=== PATIENT | male | born 1980 | race Two or more races ===

== ENCOUNTER 2020-08-02 09:52 | Outpatient (CLI) | payer OTHER | END 2020-08-02 23:59 | disposition home or self-care (01) | LOC: LAB 09:52 | PROVIDERS: ATTEND Specialist | DX: Z01.812 Encounter for preprocedural laboratory examination (principal); Z20.828 Contact with and (suspected) exposure to other viral communicable diseases | CPT/HCPCS: 87426; C9803 ×2; U0003 ==

== ENCOUNTER 2020-09-29 14:19 | Outpatient (CLI) | payer OTHER | END 2020-09-29 23:59 | disposition home or self-care (01) | LOC: LAB 14:19 | PROVIDERS: ATTEND Specialist | DX: Z01.812 Encounter for preprocedural laboratory examination (principal); Z20.828 Contact with and (suspected) exposure to other viral communicable diseases | CPT/HCPCS: 87426; C9803; U0003 ==

== ENCOUNTER 2020-10-04 05:39 | Day surgery (SDC) | payer OTHER ==
[2020-10-04] MEDS ORDERED: CEFAZOLIN 1 GM ONE (07:02)
[2020-10-04] MEDS ORDERED: BUPIVACAINE 0.5 % PF 150 MG/30 ML VIAL ONE (07:02)
[2020-10-04] MEDS ORDERED: ANESTHESIA TRAY IN PYXIS 1 EA TRAY MC ONE (07:02)
[2020-10-04] MEDS ORDERED: METHYLENE BLUE 10 ML VIAL ONE (07:02)
[2020-10-04] MEDS ORDERED: LIDOCAINE 1%-EPI 1:100,000 20 ML VIAL ONE (07:03)
[2020-10-04] MEDS ORDERED: HEMOSTATIC MATRIX 8 ML 1 EACH PAD MC ONE (07:04)
[2020-10-04] MEDS ORDERED: IOHEXOL 240MG/ML 0 ML IV ONE (07:05)
[2020-10-04] MEDS ORDERED: methylPREDNISolone ACETATE 80 MG/ML VIAL ONE ×2 (07:06→08:56)
[2020-10-04] MEDS ORDERED: MIDAZOLAM HCL 2 MG/2ML VIAL ONE (07:18)
[2020-10-04] MEDS ORDERED: FENTANYL PF 250MCG/5ML AMPUL ONE (07:19)
[2020-10-04] MEDS ORDERED: HYDROMORPHONE INJ 2 MG/ML DISP.SYRIN ONE (07:19)
[2020-10-04] MEDS ORDERED: DEXAMETHASONE SOD PHOSPHATE 10 MG/ML VIAL ONE (07:20)
[2020-10-04] MEDS ORDERED: HYDROMORPHONE 1 MG/1 ML DISP.SYRIN ONE (10:42)
== END 2020-10-04 11:35 | disposition home or self-care (01) ==
LOC: DS 05:39
PROVIDERS: ATTEND Specialist
DX: M51.17 Intervertebral disc disorders with radiculopathy, lumbosacral region (principal); K21.9 Gastro-esophageal reflux disease without esophagitis
CPT/HCPCS: 36415; 63030; 72020; 86850; A6209; A6402; J0690 ×2; J1040 ×2; J1100; J1170 ×2; J2250; J2704; J2765; J3010; J3490 ×3; Q9968; Q9966

== ENCOUNTER 2020-10-27 12:50 | Inpatient (IN) | payer OTHER ==
[~2020-10-27] VITALS: Ht 165.1 cm; Wt 70.3 kg
[2020-10-27] MEDS ORDERED: ONDANSETRON HCL/PF 4 MG/2 ML VIAL IVP ONE (13:00)
[2020-10-27] MEDS ORDERED: IV NS 0.9% 1,000 ML BAG IV ONE ×2 (13:00→14:30)
--- NOTE | 2020-10-27 13:00 | NUR ---
BIB SELF C/O DIZZINESS, LIGHTHEADED. LEAKING FLUID FRM SURGERY SITE PT HAD LAMINOTOMY 10/04/21. VS CHECKED. HOOKED ON MONITOR. IV ACCESS STARTED. BLOOD DRAW DONE. SEEN BY
[2020-10-27] MEDS ORDERED: ONDANSETRON HCL/PF 4 MG/2 ML VIAL ONE ×2 (13:11→21:14)
[2020-10-27 13:23] LABS: BASOPHILS % (AUTO) 0.2 % (0.0-2.0); EOSINOPHILS % (AUTO) 0.6 % (0.0-6.0); HEMATOCRIT 44 % (39-51); HEMOGLOBIN 14.6 g/dL (13.5-17.5); LYMPHOCYTES # (AUTO) 1.3 /CMM (0.8-4.8); MEAN CORPUSCULAR HGB CONC 34 g/dl (31.0-36.0); MEAN CORPUSCULAR VOLUME 92 fL (80-96); MONOCYTES # (AUTO) 0.6 /CMM (0.1-1.30); MONOCYTES % (AUTO) 4.4 % (2.0-12.0); NEUTROPHILS # (AUTO) 10.6 /CMM (1.8-8.9); NEUTROPHILS % (AUTO) 84.8 % (43.0-81.0); PLATELET COUNT (AUTO) 245 /CMM (150-450); RED BLOOD CELL COUNT(AUTO) 4.73 MIL/uL (4.5-6.0); WHITE BLOOD COUNT (AUTO) 12.5 K/uL (4.3-11.0)
--- NOTE | 2020-10-27 13:25 | NUR ---
SUNDAY [place]. WAITING FOR CALL BACK.
[2020-10-27 13:30] LABS: CALCIUM, SERUM 9.2 mg/dL (8.5-10.1); CREATININE 1.2 mg/dL (0.6-1.3); POTASSIUM 3.7 mmol/L (3.5-5.1)
[2020-10-27] MEDS ORDERED: GABA-532 PO (13:31)
[2020-10-27] MEDS ORDERED: QUET25TA PO (13:31)
[2020-10-27] MEDS ORDERED: HYDR-3895 PO (13:31)
[2020-10-27 13:37] LABS: ALBUMIN 3.7 g/dL (3.4-5.0); BILIRUBIN,DIRECT 0.1 mg/dL (0.0-0.2); BILIRUBIN,TOTAL 0.4 mg/dL (0.2-1.0); TOTAL PROTEIN, SERUM 7.3 g/dL (6.4-8.2)
--- NOTE | 2020-10-27 13:50 | NUR ---
SUBMITTED ADMISSION PACKET.
--- NOTE | 2020-10-27 13:51 | NUR ---
SUNDAY PAIG[place] AGAIN. WAITING FOR CALL BACK.
--- NOTE | 2020-10-27 14:22 | NUR ---
Spoke with Osmin from OR, confirmed sx schedule with Dr. Tex Sanchez for tomorrow 10-28-2020 at 0730. Primary Nurse and Dr. Erickson aware.
--- NOTE | 2020-10-27 14:36 | NUR ---
covid swab collected sent to lab
--- NOTE | 2020-10-27 15:18 | NUR ---
rapid covid test negative.
[2020-10-27] MEDS ORDERED: ONDANSETRON HCL/PF 4 MG/2 ML VIAL IVP PRN (15:30)
[2020-10-27] MEDS ORDERED: Z GUARD REMEDY 2 OZ OINT TP PRN (15:30)
[2020-10-27] MEDS ORDERED: IV NS 0.9% 1,000 ML IV PRN (15:30)
[2020-10-27] MEDS ORDERED: ACETAMINOPHEN 325 MG TABLET PO PRN (15:30)
[2020-10-27] MEDS ORDERED: hydrOXYzine PAMOATE 25 MG CAPSULE PO PRN (15:30)
--- NOTE | 2020-10-27 20:54 | NUR ---
PT REPORTS HAVING DILAUDID FROM THE PAST AND NEVER HAD AN ALLERGIC REACTION TO IT. PHARMACY MADE AWARE.
[2020-10-27] MEDS ORDERED: HYDROMORPHONE 1 MG/1 ML DISP.SYRIN IV PRN (21:00)
[2020-10-27] MEDS ORDERED: GABAPENTIN 300 MG CAPSULE ONE (21:14)
[2020-10-27] MEDS ORDERED: HYDROMORPHONE 1 MG/1 ML DISP.SYRIN ONE (21:14)
[2020-10-27] MEDS: GABAPENTIN 100 MG CAPSULE PO SCH (21:30)
[2020-10-27] MEDS: QUETIAPINE FUMARATE 25 MG TABLET PO SCH (21:32)
--- NOTE | 2020-10-27 22:10 | NUR ---
REPORT GIVEN TO M/S MISHA DORANTES. WILL TRANSPORT PT TO ROOM 313.
--- NOTE | 2020-10-27 23:00 | NUR ---
MS MISHA INITIAL NOTES ADMIT PT FROM ER VIA [facility] ACCOMPANIED BY RAG WASHER . DX OF DIZZINESS. NOT IN ANY DISCOMFORT NOTED AT THIS TIME. HE'S ALERT ORIENTED AMBULATORY . HE'S AWARE FOR HIS SURGERY ALANNAH IN AM .HE STATED THAT HE SPOKE TO DR GARCIA EARLIER. HE SIGNED THE 3 CONSENTS. KEPT HIM WARM AND COMFORTABLE AT ALL TIMES. IVF STILL INFUSING ON HIS RIGHT FOREARM . ENCOURAGE HIM TO USE THE CALL LIGHT IF HE NEEDS SOME HELP OR NEEDS THE NURSE. PLACE CALL LIGHT AT REACH. WILL CONTINUE MONITORING.
[2020-10-27 23:53] VITALS: BP 125/71
[2020-10-28] MEDS ORDERED: ANESTHESIA TRAY IN PYXIS 1 EA TRAY MC ONE (07:02)
[2020-10-28] MEDS ORDERED: METHYLENE BLUE 10 ML VIAL ONE (07:02)
[2020-10-28] MEDS ORDERED: BUPIVACAINE 0.5 % PF 150 MG/30 ML VIAL ONE (07:02)
[2020-10-28] MEDS ORDERED: CEFAZOLIN 1 GM ONE (07:03)
[2020-10-28] MEDS ORDERED: LIDOCAINE MPF 1%-EPI 1:200,000 30 ML VIAL IJ ONE (07:03)
[2020-10-28] MEDS ORDERED: methylPREDNISolone ACETATE 80 MG/ML VIAL ONE (07:03)
[2020-10-28 07:11] LABS: BASOPHILS % (AUTO) 0.3 % (0.0-2.0); EOSINOPHILS % (AUTO) 2.4 % (0.0-6.0); HEMATOCRIT 44 % (39-51); HEMOGLOBIN 14.6 g/dL (13.5-17.5); LYMPHOCYTES % (AUTO) 30.6 % (20.0-44.0); MEAN CORPUSCULAR HGB CONC 33 g/dl (31.0-36.0); MEAN CORPUSCULAR VOLUME 92 fL (80-96); MONOCYTES # (AUTO) 0.9 /CMM (0.1-1.30); MONOCYTES % (AUTO) 9.1 % (2.0-12.0); NEUTROPHILS # (AUTO) 5.7 /CMM (1.8-8.9); NEUTROPHILS % (AUTO) 57.6 % (43.0-81.0); PLATELET COUNT (AUTO) 139 /CMM (150-450); RED BLOOD CELL COUNT(AUTO) 4.78 MIL/uL (4.5-6.0); WHITE BLOOD COUNT (AUTO) 9.9 K/uL (4.3-11.0)
--- NOTE | 2020-10-28 07:20 | NUR ---
ms [facility] closing notes pt awake and alert , Operating nurse came to [facility]eps[facility] pickler him for surgery. all consents signed and pt stable since admission except some leaking from his back but pt slept well. endorse to am nurse for continuity of care.
[2020-10-28] MEDS ORDERED: HEMOSTATIC MATRIX 8 ML 1 EACH PAD MC ONE (07:22)
[2020-10-28] MEDS ORDERED: SUCCINYLCHOLINE CHLORIDE 20 MG/ML VIAL ONE (07:23)
[2020-10-28] MEDS ORDERED: FENTANYL PF 250MCG/5ML AMPUL ONE (07:23)
[2020-10-28] MEDS ORDERED: ROCURONIUM BROMIDE 50 MG/5 ML ONE (07:23)
[2020-10-28] MEDS ORDERED: MIDAZOLAM HCL 2 MG/2ML VIAL ONE (07:23)
[2020-10-28] MEDS ORDERED: PROPOFOL 100 ML ONE ×2 (07:25→08:29)
[2020-10-28 07:34] LABS: ALBUMIN 3.4 g/dL (3.4-5.0); BILIRUBIN,TOTAL 0.6 mg/dL (0.2-1.0); CALCIUM, SERUM 9.2 mg/dL (8.5-10.1); MAGNESIUM 2.1 mg/dL (1.8-2.4); PHOSPHORUS 4.2 mg/dL (2.5-4.9); POTASSIUM 3.4 mmol/L (3.5-5.1); TOTAL PROTEIN, SERUM 6.7 g/dL (6.4-8.2)
--- NOTE | 2020-10-28 07:59 | NUR ---
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
[2020-10-28] MEDS ORDERED: POTASSIUM CHLORIDE 20 MEQ TAB.PRT.SR PO ONE (09:30)
[2020-10-28] MEDS ORDERED: FENTANYL PF 100MCG/2ML AMPUL ONE (09:42)
[2020-10-28] MEDS ORDERED: HYDROMORPHONE 1 MG/1 ML DISP.SYRIN ONE (09:54)
--- NOTE | 2020-10-28 10:39 | NUR ---
MS/RN NOTES PATIENT CAME BACK FROM RECOVERY ROOM. VITAL SIGN BP 130/77 P 83 T 97.6 SAO2 96%. PATIENT WAS AWAKE ALERT AND ORIENTED X4. NO APPARENT RESPIRATORY DISTRESS NOTED. WILL CONTINUE TO MONITOR.
[2020-10-28] MEDS ORDERED: HYDROCODONE/APAP 5/325MG TABLET PO PRN (11:00)
[2020-10-28] MEDS: HYDROCODONE/APAP 5/325MG TABLET PO PRN ×2 (11:06→22:38)
[2020-10-28 12:00] VITALS: BP 113/46
[2020-10-28 16:00] VITALS: BP 136/76
--- NOTE | 2020-10-28 17:32 | NUR ---
MS/RN NOTES PATIENT REQUEST FOR SOCIAL SERVICE. ORDER FOR CONSULTATION WAS MADE.
--- NOTE | 2020-10-28 18:50 | NUR ---
MS/RN CLOSING NOTES PATIENT IS ON BED. ALERT AND ORIENTED X4. PATIENT IN ROOM AIR SATURATION 97%. PATIENT IN NO APPARENT RESPIRATORY DISTRESS NOTED. NO COMPLAINED OF PAIN AT THIS TIME. IV ACCESS AT LEFT FOREARM # 18 G WITH IV FLUID OF NS 1L AT 75MLHR ON AND INFUSING WELL. SURGICAL SITE CLEAN AND DRY. WILL ENDORSED TO CHEMICAL LABORATORY TECHNICIAN FOR [facility].
[2020-10-28 20:15] VITALS: BP 132/57
[2020-10-28 20:30] VITALS: BP 130/74
[2020-10-28] MEDS: ONDANSETRON HCL/PF 4 MG/2 ML VIAL IVP PRN (21:11)
[2020-10-28] MEDS: QUETIAPINE FUMARATE 25 MG TABLET PO SCH (21:51)
[2020-10-28] MEDS: GABAPENTIN 100 MG CAPSULE PO SCH (21:51)
--- NOTE | 2020-10-29 06:14 | NUR ---
MS RN CLOSING NOTES PATIENT IN BED,. NO S/SX OF ACUTE RESPIRATORY DISTRESS NOTED. DENIES PAIN OR DISCOMFORT AT THIS TIME. IV ACCESS PATENT AND INTACT. KEPT CLEAN AND DRY. SAFETY PRECAUTIONS IN PLACE AND MAINTAINED AT ALL TIMES. BED IN LOWEST LOCKED POSITION, HOB ELEVATED, SIDE RAILS UP X 2, CALL LIGHT AND TABLE WITHIN REACH. WILL ENDORSE TO DAY SHIFT NURSE FOR CONTINUITY OF CARE.
--- NOTE | 2020-10-29 07:07 | NUR ---
RN NOTES PATIENT RESTING HIS BED. ALERT AND ORIENTED X4. PATIENT IN ROOM AIR SATURATION 97%. PATIENT IN NO APPARENT RESPIRATORY DISTRESS NOTED. NO COMPLAINED OF PAIN AT THIS TIME. IV ACCESS PATENT INTACT. WILL ENDORSED TO DAY SHIFT FOR CONTINUITY OF CARE.
--- NOTE | 2020-10-29 07:12 | NUR ---
MS/RN OPENING NOTES RECEIVED PATIENT ON BED SLEEPING, EASILY AROUSABLE BY NAME AND LIGHT TOUCH. PATIENT IN NO APPARENT RESPIRATORY DISTRESS NOTED. NO COMPLAINED OF PAIN NOTED AT THIS TIME. WILL CONTINUE TO MONITOR.
[2020-10-29 07:27] LABS: BASOPHILS % (AUTO) 0.1 % (0.0-2.0); EOSINOPHILS % (AUTO) 0.1 % (0.0-6.0); HEMATOCRIT 45 % (39-51); LYMPHOCYTES % (AUTO) 14.1 % (20.0-44.0); MEAN CORPUSCULAR HGB CONC 33 g/dl (31.0-36.0); MEAN CORPUSCULAR VOLUME 91 fL (80-96); MONOCYTES # (AUTO) 1.3 /CMM (0.1-1.30); MONOCYTES % (AUTO) 9.6 % (2.0-12.0); NEUTROPHILS # (AUTO) 10.6 /CMM (1.8-8.9); NEUTROPHILS % (AUTO) 76.1 % (43.0-81.0); PLATELET COUNT (AUTO) 118 /CMM (150-450); RED BLOOD CELL COUNT(AUTO) 4.95 MIL/uL (4.5-6.0); WHITE BLOOD COUNT (AUTO) 13.9 K/uL (4.3-11.0)
[2020-10-29 07:29] LABS: CALCIUM, SERUM 9.3 mg/dL (8.5-10.1); CREATININE 0.9 mg/dL (0.6-1.3)
[2020-10-29] MEDS: HYDROCODONE/APAP 5/325MG TABLET PO PRN ×3 (08:22→18:29)
[2020-10-29 08:38] VITALS: BP 112/62
[2020-10-29] MEDS: ONDANSETRON HCL/PF 4 MG/2 ML VIAL IVP PRN ×2 (09:54→18:01)
--- NOTE | 2020-10-29 12:21 | NUR ---
Social Service Consult: Social consult request by pt who is 40 year old male. SW met with pt at [facility] in bed room 313-TD/2 to conduct an assessment. Pt states that he denies health care social worker at the moment because case management spoke to the pt around 1 hour ago regarding placement at a physical rehabilitation facility. Pt states speaking to case management but could not verify the person. Plan: Case management will follow up with the pt once they physical rehabilitation facility that will accept the pt. SW will follow up with the patient if needed.
[2020-10-29 17:56] VITALS: BP 127/75
--- NOTE | 2020-10-29 18:53 | NUR ---
MS/RN CLOSING NOTES PATIENTS IS ON BED. ALERT AND ORIENTED X 2-3. PATIENT IS ON ROOM AIR SATURATIONS 98%. NO COMPLAINED OF PAIN AT THIS TIME. SEEN AND EXAMINED BY MD WITH ORDERS MADE CARRIED OUT. ALL DUE MEDICATIONS WAS GIVEN. SAFETY PRECAUTION WAS IN PLACED. BED IN LOWEST POSITION AND LOCKED. CALL LIGHT WITHIN REACH. 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 GIVE REPORT TO ELISA. PATIENT WILL GO TO [facility] IN ROOM 307. WILL ENDORSED TO MASK INSPECTOR FOR [facility]. Addendum: 10/29/20 at 1854 by NAVEED DAMON RN ERROR
--- NOTE | 2020-10-29 18:55 | NUR ---
MS/RN CLOSING NOTES PATIENT IS ON BED. ALERT AND ORIENTED X 4. PATIENT IS ON ROOM AIR, SATURATION 99%. PATIENT IN NO APPARENT RESPIRATORY DISTRESS NOTED. NO COMPLAINED OF PAIN AT THIS TIME. SEEN AND EXAMINED BY MD WITH ORDERS MADE AND CARRIED OUT. ALL DUE MEDICATIONS WAS GIVEN. SAFETY PERSECUTIONS WAS IN PLACED. SIDE RAIL UP X2. CALL LIGHT WITHIN REACH. WILL ENDORSED TO ROVING DEPARTMENT SUPERVISOR FOR [facility].
[2020-10-29 20:00] VITALS: BP 118/68
[2020-10-29] MEDS: GABAPENTIN 100 MG CAPSULE PO SCH (21:22)
[2020-10-29] MEDS: QUETIAPINE FUMARATE 25 MG TABLET PO SCH (21:22)
[2020-10-29] MEDS: ACETAMINOPHEN 325 MG TABLET PO PRN (21:31)
--- NOTE | 2020-10-29 21:32 | NUR ---
TYELENOL ADMINISTERED FOR RIVERA RATED 3/10. ORDERED PRN AT REQUEST OF PT
[2020-10-30] MEDS: ACETAMINOPHEN 325 MG TABLET PO PRN (05:37)
--- NOTE | 2020-10-30 05:39 | NUR ---
tyelenol administered for cleary rated 3/10 prn per patient request.
--- NOTE | 2020-10-30 06:47 | NUR ---
MS/RN CLOSING NOTES PATIENTIN BED. ALERT AND ORIENTED X 4. PATIENT IS ON ROOM AIR, IN NO APPARENT RESPIRATORY DISTRESS NOTED. SAFETY PERSECUTIONS IN PLACE. SR UP X2. CALL LIGHT WITHIN REACH. WILL ENDORSE TO NEXT SHIFT FOR [facility]. PLAN IS FOR PATIENT TO GET PLACEMENT AT ARU FOR DISCHARGE.
[2020-10-30 08:00] VITALS: BP 124/74
[2020-10-30 11:33] VITALS: BP 124/74
[2020-10-30 16:02] VITALS: BP 121/75
--- NOTE | 2020-10-30 17:05 | NUR ---
MS/RN NOTE THE PATIENT ALERT AND ORIENTED X4. DENIES PAIN. IN ROOM AIR AND OXYGEN SATURATION IS AT 98%. DENIES SOB. RESPIRATION REGULAR AND UNLABORED. PATIENT IS PROVIDED DISCHARGE EDUCATION AND HE VERBALIZED UNDERSTANDING. THE PATIENT GETTING DISCHARGED TO BOARD AND CARE AND GOING TO THE PLACE HIMSELF. PATIENT LEFT THE HOSPITAL IN STABLE CONDITION.
== END 2020-10-30 17:00 | disposition home or self-care (01) | DRG 30 ==
LOC: ER 12:50 → TRANSITION 20:31 → MED 21:26
PROVIDERS: ADMIT Internal Medicine; ATTEND Internal Medicine
PROC: 00UT07Z Supplement Spinal Meninges with Autologous Tissue Substitute, Open Approach (ICD-10-PCS; principal; 2020-10-28)
DX: G96.09 Other spinal cerebrospinal fluid leak (principal); D72.829 Elevated white blood cell count, unspecified; G43.909 Migraine, unspecified, not intractable, without status migrainosus; Y83.8 Other surgical procedures as the cause of abnormal reaction of the patient, or of later complication, without mention of misadventure at the time of the procedure; Y75.8 Miscellaneous neurological devices associated with adverse incidents, not elsewhere classified; Y92.009 Unspecified place in unspecified non-institutional (private) residence as the place of occurrence of the external cause; Z20.822 Contact with and (suspected) exposure to COVID-19; R73.03 Prediabetes
CPT/HCPCS: 36415; 80048-TC; 80053-TC; 80061-TC; 80076-TC; 83690-TC; 83735-TC; 84100-TC; 85025-TC; 86850-TC; 87070-TC; 87081-TC; 87186-TC; 97110-TC; 97116-TC; 97530-TC; A6209; A6402; C9803; G0378; J0330; J0690; J1040; J1100; J1170; J2250; J2405; J2704; J3010; J3490; J7030; Q0177; Q9968